=== PATIENT | female | born 1965 | race Caucasian/White ===

== ENCOUNTER 2016-09-23 10:58 | Outpatient (CLI) | payer OTHER ==
--- NOTE | 2016-09-23 13:09 | DIAGNOSTIC IMAGING REPORT ---
PROCEDURE: MG UNILATERAL DIAG-RT W/CAD INDICATION: 6 months follow-up asymmetric density medial right breast. TECHNIQUE: CC, MLO and true-lateral digital views of right breast. In addition, spot compression CC and MLO views were obtained of the medial central right breast (region of clinical concern). Finally, high-resolution right breast ultrasound was performed (18 mHz). COMPARISON: Comparison is made to right mammogram right breast ultrasound (03/25/2016), and screening mammogram (03/11/2016). FINDINGS: MAMMOGRAM: Computer-aided detection applied. Mildly to moderately dense parenchymal pattern. Normal asymmetric parenchyma in the medial right breast appears unchanged. No evidence of mass or suspicious calcification. BREAST ULTRASOUND: Normal parenchyma. No evidence of mass or cyst. IMPRESSION: 1. Negative mammogram and negative right breast ultrasound with normal asymmetric parenchyma in the medial right breast. 2. Resume routine screening schedule (February 2017). 3. Findings discussed with the patient. RESULT CODE: 2- Benign finding(s). A. A negative report should not delay biopsy if a dominant or clinically suspicious mass is present. 10-15% of cancers are not identified by x-ray. B. A negative report may reinforce clinical impression. C. Adenosis and dense breasts may obscure an underlying neoplasm. D. False positive reports average 6-10%. E.. A yearly screening mammogram is recommended. A reminder letter will be scheduled.
== END 2016-09-23 23:00 ==
LOC: MAM SRH 10:58
DX: N64.89 Other specified disorders of breast (principal)